=== PATIENT | male | born 1960 | race Caucasian/White ===

== ENCOUNTER 2024-07-18 11:30 | Inpatient (IN) | payer MEDICARE ==
--- NOTE | 2024-07-18 11:58 | ED ---
Nausea/Vomiting/Diarrhea HPI - General Chief complaint: Nausea/Vomiting/Diarrhea Stated complaint: Vomiting Time Seen by Provider: 07/18/24 11:36 Source: patient, RN notes reviewed Mode of arrival: ambulatory Limitations: no limitations - History of Present Illness Initial comments: This is a 63-year-old male who presents to the emergency department for nausea and vomiting. States that it has been ongoing for about a week at this point. He has not had any bowel movements as he has been unable to keep anything down. He has been sweating a lot but has not measured any fevers. He has generalized abdominal cramping as a result of all of the vomiting. 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 He is concerned that he may have acquired this, causing his symptoms. MD complaint: nausea, vomiting - Related Data Home Medications Medication Instructions Recorded Confirmed Vortioxetine Hydrobromide 10 mg PO DAILY 07/18/24 07/18/24 [Trintellix] hydroCHLOROthiazide [Hydrodiuril] 12.5 mg PO DAILY 07/18/24 07/18/24 traZODone HCL 150 mg PO HS 07/18/24 07/18/24 Allergies Allergy/AdvReac Type Severity Reaction Status Date / Time No Known Allergies Allergy Verified 07/18/24 13:08 Review of Systems ROS Statement: Those systems with pertinent positive or pertinent negative responses have been documented in the HPI. ROS Other: All systems not noted in ROS Statement are negative. Past Medical History Past Medical History: Hypertension Smoking Status: Never smoker Past Alcohol Use History: None Reported Past Drug Use History: None Reported General Exam Limitations: no limitations General appearance: alert, in distress Head exam: Present: atraumatic, normocephalic, normal inspection Respiratory exam: Present: other (Tachypnea) Cardiovascular Exam: Present: tachycardia, irregular rhythm GI/Abdominal exam: Present: soft, normal bowel sounds. Absent: distended, tenderness, guarding, rebound, rigid Neurological exam: Present: alert, oriented X3, CN II-XII intact Psychiatric exam: Present: normal affect, normal mood Skin exam: Present: warm, dry, intact, normal color. Absent: rash Course Vital Signs 07/18/24 07/18/24 07/18/24 11:32 12:27 12:41 Temperature 98 F Pulse Rate 63 133 H 135 H Respiratory 32 H 26 H 24 Rate Blood Pressure 137/99 158/120 172/106 O2 Sat by Pulse 97 98 100 Oximetry 07/18/24 07/18/24 07/18/24 14:19 14:32 15:36 Temperature Pulse Rate 99 96 101 H Respiratory 18 18 18 Rate Blood Pressure 153/108 152/122 150/85 O2 Sat by Pulse 97 96 98 Oximetry 07/18/24 07/18/24 16:49 17:55 Temperature Pulse Rate 102 H 88 Respiratory 18 18 Rate Blood Pressure 123/89 150/99 O2 Sat by Pulse 95 97 Oximetry Medical Decision Making - Medical Decision Making This is a 63-year-old male who presents to the emergency department for nausea and vomiting. Was pt. sent in by a medical professional or institution? @ -No Did you speak to anyone other than the patient for history? @ -No Did you review nursing and triage notes? @ -Yes, and I agree, it is accurate with regards to the patient's symptoms. Were old charts reviewed? @ -No Differential Diagnosis? @ -Differential Nausea and Vomiting: Gastroenteritis, cholecystitis, appendicitis, pancreatitis, migraine, benign positional vertigo, food borne illness, pyelonephritis, irritable bowel syndrome, influenza, Covid, GERD, incarcerated hernia, intestinal obstruction, this is not meant to be an all-inclusive list. EKG interpreted by me (3pts min.)? @ -EKG interpreted by me demonstrating the following: A-fib with RVR. Ventricular rate 153 bpm, QRS duration 109 ms, QTc 373 ms. X-rays interpreted by me (1pt min.)? @ -Chest x-ray obtained, my interpretation identifies no localized consolidations or infiltrates. CT interpreted by me (1pt min.)? @ -CT scan of the abdomen and pelvis obtained. My interpretation identifies no evidence of bowel wall thickening or free air. U/S interpreted by me (1pt. min.)? @ -Not obtained What testing was considered but not performed? (CT, X-rays, U/S, labs)? Why? @ -None What meds were considered but not given? Why? @ -None Did you discuss the management of the patient with other professionals? @ -Yes, Dr. Acuña, who accepts the patient for admission Did you reconcile home meds? @ -Yes Was smoking cessation discussed for >3mins.? @ -No Was critical care preformed (if so, how long)? @ -Yes, >35 minutes Were there social determinants of health that impacted care today? How? (Homelessness, low income, unemployed, alcoholism, drug addiction, transportation, low edu. Level, literacy, decrease access to med. care, assisted, rehab)? @ -No Was there de-escalation of care discussed even if they declined? (Discuss DNR or withdrawal of care, Hospice)? @ -No What co-morbidities impacted this encounter? (DM, HTN, Smoking, COPD, CAD, Cancer, CVA, Hep., AIDS, mental health diagnosis, sleep apnea, morbid obesity)? @ -HTN Was patient admitted / discharged? @ -Admitted. On arrival an EKG was performed demonstrating A-fib with RVR. Patient has no history of A-fib. This was thought to be related to volume depletion due to how long his symptoms have been going on. He ended up receiving 2 L bolus of IV fluids and lab work was obtained. He did start to have improvement in his heart rate and the A-fib was no longer persistent, he seemed to be going in and out of it. He did have some mild chest pain that resolved on its own. Lab work demonstrated multiple irregularities including a sodium of 125, potassium of 2.8, bicarb of less than 5, undetectable anion gap, lactic acid of 3.7, and acetone positive. Venous blood gas and returned with a pH of 7.6, which did not make as much sense from our perspective. Patient was thought to have a fairly severe metabolic acidosis, potentially a starvation ketosis. Dr. Evans discussed the case with Dr. Ayon, who also advised that the pH component does not appear to to fit. He advised an ABG and repeat lab work. Lab work was repeated. At that point he had already received 2 L of IV fluids. He did have improvement in values including a pH of 7.45, CO2 of 19, and bicarb of 13. Repeat CMP did have improvements as well, however he remained fairly acidotic. Troponin elevated at 0.055, likely related to demand ischemia. We did also obtain a chest x-ray and CT scan of the abdomen and pelvis, both of which were unremarkable. Patient appears to have some sort of metabolic acidosis/possible mixed metabolic derangement with the nausea and vomiting. Patient was admitted to medicine for further management. He was started on maintenance fluids at 130 mL an hour. 40 mEq of potassium chloride administered as well. Consult placed for nephrology regarding the metabolic derangement and cardiology was consulted for the new onset A-fib and elevated troponin. Serial troponins ordered. Case discussed with ED attending Dr. Evans. Undiagnosed new problem with uncertain prognosis? @ -None Drug Therapy requiring intensive monitoring for toxicity (Heparin, Nitro, Insulin, Cardizem)? @ -Heparin Were any procedures done? @ -None Diagnosis/symptom? @ -Nausea and vomiting, metabolic acidosis, mixed metabolic derangement, new onset A-fib, elevated troponin Acute, or Chronic, or Acute on Chronic? @ -Acute Uncomplicated (without systemic symptoms) or Complicated (systemic symptoms)? @ -Complicated Side effects of treatment? @ -None Exacerbation, Progression, or Severe Exacerbation] @ -Not applicable Poses a threat to life or bodily function? @ -Yes, can lead to cardiac arrest and - Lab Data Result diagrams: 07/18/24 12:15 07/18/24 13:39 Lab Results 07/18/24 07/18/24 07/18/24 Range/Units 12:15 12:15 12:15 WBC 13.9 H (3.8-10.6) k/uL RBC 5.69 (4.30-5.90) m/uL Hgb 16.8 (13.0-17.5) gm/dL Hct 48.2 (39.0-53.0) % MCV 84.8 (80.0-100.0) fL MCH 29.5 (25.0-35.0) pg MCHC 34.8 (31.0-37.0) g/dL RDW 14.4 (11.5-15.5) % Plt Count 600 H (150-450) k/uL MPV 6.3 Neutrophils % 76 % Lymphocytes % 16 % Monocytes % 5 % Eosinophils % 1 % Basophils % 0 % Neutrophils # 10.5 H (1.3-7.7) k/uL Lymphocytes # 2.3 (1.0-4.8) k/uL Monocytes # 0.7 (0-1.0) k/uL Eosinophils # 0.1 (0-0.7) k/uL Basophils # 0.1 (0-0.2) k/uL Sample Site ABG pH (7.35-7.45) ABG pCO2 (35-45) mmHg ABG pO2 (83-108) mmHg ABG HCO3 (21-25) mmol/L ABG Total CO2 (19-24) mmol/L ABG O2 Saturation (94-97) % ABG Base Excess mmol/L Manuel Test VBG pH (7.31-7.41) VBG pCO2 (37-51) mmHg VBG HCO3 (24-28) mmol/L Hemoglobin (13.0-17.5) gm/dL FiO2 % Sodium 125 L (137-145) mmol/L Potassium 2.8 L (3.5-5.1) mmol/L Chloride 89 L (98-107) mmol/L Carbon Dioxide <5 L* (22-30) mmol/L Anion Gap mmol/L BUN 26 H (9-20) mg/dL Creatinine 1.58 H (0.66-1.25) mg/dL Est GFR (CKD-EPI)AfAm 52 (>60 ml/min/1.73 sqM) Est GFR (CKD-EPI)NonAf 45 (>60 ml/min/1.73 sqM) Glucose 189 H (74-99) mg/dL Lactic Ac Sepsis Rflx Plasma Lactic Acid Bryce 3.7 H* (0.7-2.0) mmol/L Calcium 9.8 (8.4-10.2) mg/dL Phosphorus 3.9 (2.5-4.5) mg/dL Magnesium 1.8 (1.6-2.3) mg/dL Total Bilirubin 1.5 H (0.2-1.3) mg/dL AST 26 (17-59) U/L ALT 20 (4-49) U/L Alkaline Phosphatase 92 (38-126) U/L Troponin I (0.000-0.034) ng/mL Total Protein 7.8 (6.3-8.2) g/dL Albumin 4.6 (3.5-5.0) g/dL Amylase 67 (30-110) U/L Lipase 201 (23-300) U/L Acetone, Qual Positive (Negative) Influenza Type A (PCR) (Not Detectd) Influenza Type B (PCR) (Not Detectd) RSV (PCR) (Not Detectd) SARS-CoV-2 (PCR) (Not Detectd) 07/18/24 07/18/24 07/18/24 Range/Units 12:15 12:27 12:52 WBC (3.8-10.6) k/uL RBC (4.30-5.90) m/uL Hgb (13.0-17.5) gm/dL Hct (39.0-53.0) % MCV (80.0-100.0) fL MCH (25.0-35.0) pg MCHC (31.0-37.0) g/dL RDW (11.5-15.5) % Plt Count (150-450) k/uL MPV Neutrophils % % Lymphocytes % % Monocytes % % Eosinophils % % Basophils % % Neutrophils # (1.3-7.7) k/uL Lymphocytes # (1.0-4.8) k/uL Monocytes # (0-1.0) k/uL Eosinophils # (0-0.7) k/uL Basophils # (0-0.2) k/uL Sample Site ABG pH (7.35-7.45) ABG pCO2 (35-45) mmHg ABG pO2 (83-108) mmHg ABG HCO3 (21-25) mmol/L ABG Total CO2 (19-24) mmol/L ABG O2 Saturation (94-97) % ABG Base Excess mmol/L Manuel Test VBG pH 7.60 H* (7.31-7.41) VBG pCO2 <15 L* (37-51) mmHg VBG HCO3 (24-28) mmol/L Hemoglobin (13.0-17.5) gm/dL FiO2 % Sodium (137-145) mmol/L Potassium (3.5-5.1) mmol/L Chloride (98-107) mmol/L Carbon Dioxide (22-30) mmol/L Anion Gap mmol/L BUN (9-20) mg/dL Creatinine (0.66-1.25) mg/dL Est GFR (CKD-EPI)AfAm (>60 ml/min/1.73 sqM) Est GFR (CKD-EPI)NonAf (>60 ml/min/1.73 sqM) Glucose (74-99) mg/dL Lactic Ac Sepsis Rflx Y Plasma Lactic Acid Bryce (0.7-2.0) mmol/L Calcium (8.4-10.2) mg/dL Phosphorus (2.5-4.5) mg/dL Magnesium (1.6-2.3) mg/dL Total Bilirubin (0.2-1.3) mg/dL AST (17-59) U/L ALT (4-49) U/L Alkaline Phosphatase (38-126) U/L Troponin I (0.000-0.034) ng/mL Total Protein (6.3-8.2) g/dL Albumin (3.5-5.0) g/dL Amylase (30-110) U/L Lipase (23-300) U/L Acetone, Qual (Negative) Influenza Type A (PCR) Not Detected (Not Detectd) Influenza Type B (PCR) Not Detected (Not Detectd) RSV (PCR) Not Detected (Not Detectd) SARS-CoV-2 (PCR) Not Detected (Not Detectd) 07/18/24 07/18/24 07/18/24 Range/Units 12:58 13:39 13:50 WBC (3.8-10.6) k/uL RBC (4.30-5.90) m/uL Hgb (13.0-17.5) gm/dL Hct (39.0-53.0) % MCV (80.0-100.0) fL MCH (25.0-35.0) pg MCHC (31.0-37.0) g/dL RDW (11.5-15.5) % Plt Count (150-450) k/uL MPV Neutrophils % % Lymphocytes % % Monocytes % % Eosinophils % % Basophils % % Neutrophils # (1.3-7.7) k/uL Lymphocytes # (1.0-4.8) k/uL Monocytes # (0-1.0) k/uL Eosinophils # (0-0.7) k/uL Basophils # (0-0.2) k/uL Sample Site rbrach ABG pH 7.45 (7.35-7.45) ABG pCO2 19 L* (35-45) mmHg ABG pO2 92 (83-108) mmHg ABG HCO3 13 L (21-25) mmol/L ABG Total CO2 14 L (19-24) mmol/L ABG O2 Saturation 97.3 H (94-97) % ABG Base Excess -8.3 mmol/L Manuel Test Yes VBG pH (7.31-7.41) VBG pCO2 (37-51) mmHg VBG HCO3 (24-28) mmol/L Hemoglobin 14.2 (13.0-17.5) gm/dL FiO2 21 % Sodium 127 L (137-145) mmol/L Potassium 2.8 L (3.5-5.1) mmol/L Chloride 98 (98-107) mmol/L Carbon Dioxide 8 L* (22-30) mmol/L Anion Gap 21 mmol/L BUN 23 H (9-20) mg/dL Creatinine 1.20 (0.66-1.25) mg/dL Est GFR (CKD-EPI)AfAm 73 (>60 ml/min/1.73 sqM) Est GFR (CKD-EPI)NonAf 63 (>60 ml/min/1.73 sqM) Glucose 118 H (74-99) mg/dL Lactic Ac Sepsis Rflx Plasma Lactic Acid Bryce (0.7-2.0) mmol/L Calcium 8.4 (8.4-10.2) mg/dL Phosphorus (2.5-4.5) mg/dL Magnesium (1.6-2.3) mg/dL Total Bilirubin 1.4 H (0.2-1.3) mg/dL AST 24 (17-59) U/L ALT 16 (4-49) U/L Alkaline Phosphatase 70 (38-126) U/L Troponin I 0.055 H* (0.000-0.034) ng/mL Total Protein 6.7 (6.3-8.2) g/dL Albumin 3.9 (3.5-5.0) g/dL Amylase (30-110) U/L Lipase (23-300) U/L Acetone, Qual (Negative) Influenza Type A (PCR) (Not Detectd) Influenza Type B (PCR) (Not Detectd) RSV (PCR) (Not Detectd) SARS-CoV-2 (PCR) (Not Detectd) - Radiology Data Radiology results: report reviewed, image reviewed Critical Care Time Critical Care Time: Yes Critical Care Time: >35 minutes Disposition Clinical Impression: Nausea and vomiting, Mixed acid base balance disorder, Metabolic acidosis, New onset atrial fibrillation, Elevated troponin Disposition: ADMITTED IP TO THIS HOSP
[2024-07-18] MEDS: SODIUM CHLORIDE 0.9% 500 ML 500 ML IV STA ×2 (12:17→13:30)
[2024-07-18] MEDS: SODIUM CHLORIDE 0.9% 1,000 ML IV STA ×2 (12:18→13:30)
[2024-07-18] MEDS: ONDANSETRON 4 MG/2 ML VIAL IVP STA (12:19)
[2024-07-18 12:21] LABS: Basophils # (A) 0.1 k/uL (0-0.2); Basophils % (A) 0 %; Eosinophils # (A) 0.1 k/uL (0-0.7); Eosinophils % (A) 1 %; HCT 48.2 % (39.0-53.0); HGB 16.8 gm/dL (13.0-17.5); Lymphocytes # (A) 2.3 k/uL (1.0-4.8); Lymphocytes % (A) 16 %; MCH 29.5 pg (25.0-35.0); MCHC 34.8 g/dL (31.0-37.0); MCV 84.8 fL (80.0-100.0); Mean Platelet Volume 6.3; Monocytes # (A) 0.7 k/uL (0-1.0); Monocytes % (A) 5 %; Neutrophils # (A) 10.5 k/uL (1.3-7.7); Neutrophils % (A) 76 %; Platelet Count 600 k/uL (150-450); RBC 5.69 m/uL (4.30-5.90); RDW 14.4 % (11.5-15.5); WBC 13.9 k/uL (3.8-10.6)
[2024-07-18] MEDS: FAMOTIDINE 20 MG/2 ML VIAL IV STA (12:22)
[2024-07-18 12:35] LABS: ALT 20 U/L (4-49); AST 26 U/L (17-59); African American GFR (CKD) 52 (>60 ml/min/1.73 sqM); Albumin 4.6 g/dL (3.5-5.0); Alkaline Phosphatase 92 U/L (38-126); Amylase 67 U/L (30-110); Blood Urea Nitrogen 26 mg/dL (9-20); Calcium 9.8 mg/dL (8.4-10.2); Chloride 89 mmol/L (98-107); Glucose 189 mg/dL (74-99); Lipase 201 U/L (23-300); Magnesium 1.8 mg/dL (1.6-2.3); Non-African American GFR(CKD) 45 (>60 ml/min/1.73 sqM); Phosphorus 3.9 mg/dL (2.5-4.5); Potassium 2.8 mmol/L (3.5-5.1); Sodium 125 mmol/L (137-145); Total Bilirubin 1.5 mg/dL (0.2-1.3); Total Protein 7.8 g/dL (6.3-8.2)
[2024-07-18 12:52] LABS: Carbon Dioxide <5 mmol/L (22-30)
[2024-07-18 13:03] LABS: VBG PCO2 <15 mmHg (37-51)
--- NOTE | 2024-07-18 13:04 | XR ---
EXAMINATION TYPE: XR chest 1V portable DATE OF EXAM: 07/18/2024 COMPARISON: NONE CLINICAL INDICATION: Male, 63 years old with history of HALI; TECHNIQUE: Single frontal view of the chest is obtained. FINDINGS: There is no focal air space opacity, pleural effusion, or pneumothorax seen. The cardiac silhouette size is within normal limits. The osseous structures are intact. IMPRESSION: No acute process. [facility], , 07/18/2024 1:02 PM
--- NOTE | 2024-07-18 13:32 | CT ---
EXAMINATION TYPE: CT abdomen pelvis wo con DATE OF EXAM: 07/18/2024 COMPARISON: None CLINICAL INDICATION: Male, 63 years old with history of Abdominal pain, acute, nonlocalized; PHH, Abd ominal pain, acute, non localized TECHNIQUE: CT scan of the abdomen and pelvis is performed without oral or IV contrast. CT DLP: 488.[address] CTDI: mGy Automated exposure control for dose reduction was used. FINDINGS: Within the limitations of a non-contrast study, the following observations are made. The lungs are clear. There is a small hiatal hernia. Gallbladder is normal and there is no gallstone, wall thickening, pericholecystic fluid or distention . There is no biliary ductal dilatation. There is no organomegaly of the liver, pancreas, spleen or adrenal glands. There is a 3 to 4 mm nonobstructing renal calcification on the left. There is no hydronephrosis bilat erally. There are no right renal calcifications. The caliber of the abdominal aorta is normal and there is no retroperitoneal adenopathy or hemorrhage . The bowel loops are normal in caliber is no evidence of obstruction. No inflammatory changes are iden tified in the mesentery and there is no free intraperitoneal air or fluid. There is no pelvic mass, free fluid, abscess or adenopathy. There is mild to moderate diverticulosis of the colon without CT evidence of diverticulitis. The osseous structures and soft tissues are unremarkable. IMPRESSION: 1. No acute changes within the abdomen or pelvis. 2. 2 to 3 mm nonobstructing left renal calcification. 3. [id number] diverticulosis without CT evidence of acute diverticulitis. [facility], , 07/18/2024 1:29 PM
[2024-07-18 13:54] LABS: ABG Base Excess -8.3 mmol/L; ABG HCO3 13 mmol/L (21-25); ABG Oxygen Saturation 97.3 % (94-97); ABG PH 7.45 (7.35-7.45); ABG PO2 92 mmHg (83-108); ABG TCO2 14 mmol/L (19-24); Allen Test Performed? Yes
[2024-07-18 13:55] LABS: ABG PCO2 19 mmHg (35-45)
[2024-07-18 14:04] LABS: ALT 16 U/L (4-49); AST 24 U/L (17-59); African American GFR (CKD) 73 (>60 ml/min/1.73 sqM); Albumin 3.9 g/dL (3.5-5.0); Alkaline Phosphatase 70 U/L (38-126); Anion Gap 21 mmol/L; Blood Urea Nitrogen 23 mg/dL (9-20); Calcium 8.4 mg/dL (8.4-10.2); Chloride 98 mmol/L (98-107); Glucose 118 mg/dL (74-99); Non-African American GFR(CKD) 63 (>60 ml/min/1.73 sqM); Potassium 2.8 mmol/L (3.5-5.1); Sodium 127 mmol/L (137-145); Total Bilirubin 1.4 mg/dL (0.2-1.3); Total Protein 6.7 g/dL (6.3-8.2)
[2024-07-18 14:18] LABS: Carbon Dioxide 8 mmol/L (22-30)
[2024-07-18] MEDS: POTASSIUM CHLORIDE 10 MEQ in WATER FOR INJECTION 1 100ML.BAG IVPB SCH (14:31)
[2024-07-18] MEDS ORDERED: HYDROcodone/APAP 5-325MG 1 EACH TAB PO PRN (14:37)
[2024-07-18] MEDS ORDERED: ONDANSETRON 4 MG/2 ML VIAL IVP PRN (14:37)
[2024-07-18] MEDS ORDERED: ACETAMINOPHEN TAB 325 MG TAB PO PRN (14:37)
[2024-07-18] MEDS ORDERED: NALOXONE 0.4 MG/ML 1 ML VIAL IV PRN (14:37)
[2024-07-18] MEDS ORDERED: MORPHINE SULFATE 4 MG/ML SYRINGE IV PRN (14:37)
[2024-07-18] MEDS: HEPARIN SODIUM 1,000 UN/ML (10ML VL) IV ONE (20:15)
[2024-07-18] MEDS: HEPARIN SOD,PORK IN 0.45% NACL 25,000 UNIT in 0.45% NACL 1 250ML.BAG IV SCH (20:19)
[2024-07-18] MEDS: traZODone HCL 50 MG TAB PO SCH (20:55)
[2024-07-19 02:02] LABS: Appearance,Urine Clear (Clear); Bilirubin,Urine Negative (Negative); Blood,Urine Negative (Negative); Color,Urine Light Yellow; Glucose,Urine (UA) Negative (Negative); Ketones,Urine 3+ (Negative); Leukocyte Esterase,Urine Negative (Negative); Nitrite,Urine Negative (Negative); PH, Urine 5.5 (5.0-8.0); Protein,Urine Negative (Negative); Specific Gravity,Urine 1.017 (1.001-1.035); Urobilinogen,Urine <2.0 mg/dL (<2.0)
[2024-07-19 02:55] LABS: Basophils # (A) 0.1 k/uL (0-0.2); Basophils % (A) 1 %; Eosinophils # (A) 0.2 k/uL (0-0.7); Eosinophils % (A) 2 %; HCT 38.6 % (39.0-53.0); Lymphocytes # (A) 2.6 k/uL (1.0-4.8); Lymphocytes % (A) 21 %; MCH 29.5 pg (25.0-35.0); MCHC 34.2 g/dL (31.0-37.0); MCV 86.3 fL (80.0-100.0); Monocytes # (A) 0.9 k/uL (0-1.0); Monocytes % (A) 7 %; Neutrophils # (A) 8.2 k/uL (1.3-7.7); Neutrophils % (A) 67 %; Platelet Count 427 k/uL (150-450); RBC 4.48 m/uL (4.30-5.90); RDW 14.9 % (11.5-15.5); WBC 12.3 k/uL (3.8-10.6)
[2024-07-19 02:59] LABS: Prothrombin Time 11.1 sec (10.0-12.5)
[2024-07-19 03:02] LABS: HGB 13.2 gm/dL (13.0-17.5)
[2024-07-19] MEDS: HEPARIN SODIUM 1,000 UN/ML (10ML VL) IV PRN (04:39)
[2024-07-19] MEDS ORDERED: hydroCHLOROthiazide 12.5 MG CAP PO SCH (09:00)
[2024-07-19] MEDS: VORTIOXETINE HYDROBROMIDE 20 MG TABLET PO SCH (09:19)
[2024-07-19] MEDS: PANTOPRAZOLE 40 MG/10 ML VIAL IV SCH (09:19)
[2024-07-19] MEDS: SODIUM CHLORIDE 0.9% 1,000 ML IV SCH (10:51)
[2024-07-19] MEDS: METOPROLOL SUCCINATE (ER) 25 MG TAB.ER.24H PO SCH (11:11)
[2024-07-19 11:49] LABS: African American GFR (CKD) >90 (>60 ml/min/1.73 sqM); Alcohol <10 mg/dL; Anion Gap 13 mmol/L; Blood Urea Nitrogen 16 mg/dL (9-20); Calcium 8.7 mg/dL (8.4-10.2); Carbon Dioxide 19 mmol/L (22-30); Chloride 98 mmol/L (98-107); Glucose 121 mg/dL (74-99); Non-African American GFR(CKD) 84 (>60 ml/min/1.73 sqM); Potassium 3.1 mmol/L (3.5-5.1); Sodium 130 mmol/L (137-145)
--- NOTE | 2024-07-19 12:08 | P.NPCON ---
History of Present Illness - Reason for Consult metabolic acidosis - History of Present Illness patient is a 63-year-old male with history of hypertension who was admitted to the hospital with history of nausea and vomiting for 1 week prior to admission. Patient denied any diarrhea. No history of fever. Patient states that he was recently switched from lisinopril to hydrochlorothiazide. History of EtOH abuse and patient stated that he suddenly felt very sick after he had alcohol about a week ago and has not had any further intake. There may be concern for food poisoning with recent intake of [employer]affles. CO2 was 8 and serum creatinine 1.2 on admission. No significant hypotension. Status post IV fluid boluses. Patient states he is feeling better. He has been voiding. Past Medical History Past Medical History: Hypertension Smoking Status: Never smoker Past Alcohol Use History: None Reported Past Drug Use History: None Reported Medications and Allergies Home Medications Medication Instructions Recorded Confirmed Type Vortioxetine Hydrobromide 10 mg PO DAILY 07/18/24 07/18/24 History [Trintellix] hydroCHLOROthiazide [Hydrodiuril] 12.5 mg PO DAILY 07/18/24 07/18/24 History traZODone HCL 150 mg PO HS 07/18/24 07/18/24 History Allergies Allergy/AdvReac Type Severity Reaction Status Date / Time No Known Allergies Allergy Verified 07/18/24 13:08 Physical Exam Vitals: Vital Signs Temp Pulse Resp BP Pulse Ox 07/19/24 11:12 98.2 F 100 18 105/75 97 07/19/24 07:21 98.2 F 89 16 139/90 95 07/19/24 04:43 97.8 F 88 15 141/96 98 07/19/24 01:46 98.7 F 93 18 131/73 95 07/18/24 17:55 88 18 150/99 97 07/18/24 16:49 102 H 18 123/89 95 07/18/24 15:36 101 H 18 150/85 98 07/18/24 14:32 96 18 152/122 96 07/18/24 14:19 99 18 153/108 97 07/18/24 12:41 135 H 24 172/106 100 07/18/24 12:27 133 H 26 H 158/120 98 Intake and Output 12/08/24 12/09/24 12/09/24 22:59 06:59 14:59 Intake Total 83.833 200 Output Total 325 Balance -241.167 200 Intake: Intake, IV Titration 83.833 Amount Heparin Sod,Pork in 0.45% 83.833 NaCl 25,000 unit In 0.45 % NaCl 1 250ml.bag @ 12 UNITS/KG/HR 10.015 mls/hr IV .Q24H [facility] Rx#: [id number] Oral 200 Output: Urine 325 patient is comfortable awake alert oriented 3. No acute distress Examination of the heart S1 and S2 Examination of the lungs bilateral breath sounds are heard Abdomen is soft nontender Examination of lower extremities shows no significant edema [employer]OCK [employer] exam grossly intact Results - Lab Results Most recent lab results ABG pH 7.45 (7.35-7.45) 07/18/24 13:50 ABG pCO2 19 mmHg (35-45) L* 07/18/24 13:50 ABG pO2 92 mmHg (83-108) 07/18/24 13:50 ABG HCO3 13 mmol/L (21-25) L 07/18/24 13:50 ABG O2 Saturation 97.3 % (94-97) H 07/18/24 13:50 Calcium 8.7 mg/dL (8.4-10.2) 07/19/24 10:59 Phosphorus 3.9 mg/dL (2.5-4.5) 07/18/24 12:15 Magnesium 1.8 mg/dL (1.6-2.3) 07/18/24 12:15 07/19/24 02:23 07/19/24 10:59 Assessment and Plan Assessment: 1. Anion gap metabolic acidosis associated with starvation ketosis. 2. Volume depletion 3. Hypovolemic hyponatremia 4. Hypokalemia associated with GI fluid loss and vomiting. 5. Elevated troponins 6. Respiratory alkalosis as compensation for severe metabolic acidosis Plan: add IV sodium bicarb Repeat labs replace potassium. Encouraged increased oral intake Thank you for the consultation. We will continue to follow the patient with you during his hospitalization.
[2024-07-19 12:30] LABS: Amphetamine Screen,Urine Not Detected (NotDetected); Barbiturate Screen,Urine Not Detected (NotDetected); Benzodiazepines Screen,Urine Not Detected (NotDetected); Cocaine Screen,Urine Not Detected (NotDetected); Methadone Screen, Urine Not Detected (NotDetected); Opiate Screen,Urine Not Detected (NotDetected); Oxycodone Screen, Urine Not Detected (NotDetected); Phencyclidine Screen,Urine Not Detected (NotDetected); Tricyclic Antidepressant,Urine Not Detected (NotDetected); Urn Cannabinoid Scrn Detected (NotDetected)
[2024-07-19] MEDS: DEXTROSE 5% IN WATER 1,000 ML with SODIUM BICARB (1 MEQ/ML) 150 ML IV SCH (12:33)
--- NOTE | 2024-07-19 12:58 | P.HPIM ---
History of Present Illness H&P Date: 07/19/24 History of present illness; Patient is 63-year-old male with hypertension who presents for nausea and vomiting. Patient states symptoms began 1 week ago and have progressively worsened he states he vomits multiple times a day nonbloody and more recently have become bilious. He states symptoms began after eating [employer] waffles and believes there was a recent Listeria recall. Patient states he also had symptoms of diaphoresis, chills and abdominal cramping. He also notes some dull central chest pain associated with the vomiting, which improved somewhat with gentle massage. This morning patient states he is feeling his symptoms have improved with treatment in the ER of pantoprazole, Zofran and IV fluids. At this time he is denying fever, chills, chest pain, shortness of breath, palpitations, melena, hematuria. Initial lab workup in ER with WBC 13.9, hemoglobin 16.8, platelets 600, VBG pH 7.6, ABG 7.45, pCO2 19, O2 92, sodium 125, potassium 2.8, chloride 89, bicarb less than 5, BUN 26, creatinine 1.58, glucose 189, plasma lactic acid 3.7, total bili 1.5, troponin 0.055 => 0.077 => 0.100. Acetone positive. UA with 3+ ketones. EKG done in the ER A-fib with RVR heart rate of 153, no ST segment elevation or depression seen, no T-wave inversions seen. Later EKG with A-fib rate 92. Chest x-ray done independently interpreted in the ER showed no acute process CTAP interpreted as no acute change, 2 to 3 mm left renal stone nonobstructing, diverticulosis noted with no acute diverticulitis Spoke with the ER physician, patient admission was accepted by internal medicine service for treatment. REVIEW OF SYSTEMS: Pertinent positives and negatives noted in HPI. PHYSICAL EXAMINATION: Vitals reviewed GENERAL: No acute distress. Well developed, well nourished. HEENT: Pupils are round and equally reacting to light. EOMI. No scleral icterus. Normocephalic, atraumatic. No pharyngeal erythema. No thyromegaly. CARDIOVASCULAR: S1 and S2 present. No murmurs, rubs, or gallops. PULMONARY: Chest is clear to auscultation, no wheezing, rhonchi, or crackles. ABDOMEN: Soft, nontender, nondistended, normoactive bowel sounds. No palpable organomegaly. MUSCULOSKELETAL: No apparent joint swelling and deformities. EXTREMITIES: No apparent cyanosis, clubbing, or pedal edema. NEUROLOGICAL: The patient is alert and oriented x3, Gross neurological examination did not reveal any focal deficits. SKIN: No apparent rashes. Today's labs WBC 12.3, hemoglobin 13.2, sodium 130, potassium 3.1, bicarb 19, gap 13, BUN 16, creatinine 0.95 Assessment and plan Patient is 63-year-old male with hypertension who presents for nausea and vomiting. #Gastroenteritis with nausea and vomiting #Anion gap metabolic acidosis with starvation ketosis with compensatory respiratory alkalosis #Hypovolemic hyponatremia #Hypokalemia fromGI fluid loss Continue pantoprazole, famotidine and Zofran Given 2 L IV NS in ER Given IV sodium bicarb with D5 W Given potassium replacement Monitor BMP Nephrology consulted #Elevated troponin #New onset A-fib Initial troponin 0.055 => 0.077 => 0.[address] segment elevation or depression noted Continue heparin drip Begin metoprolol Echo pending Lipid panel, HbA1c, TSH pending Continuous cardiac monitoring Cardiology consulted Chronic Medical Conditions # Essential hypertension -Holding home hydrochlorothiazide F: IV D5W E: Replete as needed N: Clear liquid DVT ppx: Heparin drip Code status: Full code Anticipated discharge place: Home Anticipated discharge time: Tomorrow Dictation was produced using [employer] dictation software. Please excuse any grammatical, word or spelling errors. Past Medical History Past Medical History: Hypertension Smoking Status: Never smoker Past Alcohol Use History: None Reported Past Drug Use History: None Reported Medications and Allergies Home Medications Medication Instructions Recorded Confirmed Type Vortioxetine Hydrobromide 10 mg PO DAILY 07/18/24 07/18/24 History [Trintellix] hydroCHLOROthiazide [Hydrodiuril] 12.5 mg PO DAILY 07/18/24 07/18/24 History traZODone HCL 150 mg PO HS 07/18/24 07/18/24 History Allergies Allergy/AdvReac Type Severity Reaction Status Date / Time No Known Allergies Allergy Verified 07/18/24 13:08 Physical Exam Vitals: Vital Signs Temp Pulse Resp BP Pulse Ox 07/19/24 11:12 98.2 F 100 18 105/75 97 07/19/24 07:21 98.2 F 89 16 139/90 95 07/19/24 04:43 97.8 F 88 15 141/96 98 07/19/24 01:46 98.7 F 93 18 131/73 95 07/18/24 17:55 88 18 150/99 97 07/18/24 16:49 102 H 18 123/89 95 07/18/24 15:36 101 H 18 150/85 98 07/18/24 14:32 96 18 152/122 96 07/18/24 14:19 99 18 153/108 97 07/18/24 12:41 135 H 24 172/106 100 Intake and Output 07/18/24 07/19/24 07/19/24 22:59 06:59 14:59 Intake Total 83.833 200 Output Total 325 Balance -241.167 200 Intake: Intake, IV Titration 83.833 Amount Heparin Sod,Pork in 0.45% 83.833 NaCl 25,000 unit In 0.45 % NaCl 1 250ml.bag @ 12 UNITS/KG/HR 10.015 mls/hr IV .Q[facility]H [facility] Rx#: [id number] Oral 200 Output: Urine 325 Results CBC & Chem 7: 07/19/24 02:23 07/19/24 10:59 Labs: Abnormal Lab Results - Last 24 Hours (Table) 07/18/24 07/18/24 07/18/24 Range/Units 12:15 12:15 12:15 WBC (3.8-10.6) k/uL Hct (39.0-53.0) % Neutrophils # (1.3-7.7) k/uL APTT (22.0-30.0) sec ABG pCO2 (35-45) mmHg ABG HCO3 (21-25) mmol/L ABG Total CO2 (19-24) mmol/L ABG O2 Saturation (94-97) % VBG pH 7.60 H* (7.31-7.41) VBG pCO2 <15 L* (37-51) mmHg Sodium 125 L (137-145) mmol/L Potassium 2.8 L (3.5-5.1) mmol/L Chloride 89 L (98-107) mmol/L Carbon Dioxide <5 L* (22-30) mmol/L BUN 26 H (9-20) mg/dL Creatinine 1.58 H (0.66-1.25) mg/dL Glucose 189 H (74-99) mg/dL Plasma Lactic Acid Bryce 3.7 H* (0.7-2.0) mmol/L Total Bilirubin 1.5 H (0.2-1.3) mg/dL Troponin I (0.000-0.034) ng/mL Urine Ketones (Negative) 07/18/24 07/18/24 07/18/24 Range/Units 12:58 13:39 13:50 WBC (3.8-10.6) k/uL Hct (39.0-53.0) % Neutrophils # (1.3-7.7) k/uL APTT (22.0-30.0) sec ABG pCO2 19 L* (35-45) mmHg ABG HCO3 13 L (21-25) mmol/L ABG Total CO2 14 L (19-24) mmol/L ABG O2 Saturation 97.3 H (94-97) % VBG pH (7.31-7.41) VBG pCO2 (37-51) mmHg Sodium 127 L (137-145) mmol/L Potassium 2.8 L (3.5-5.1) mmol/L Chloride (98-107) mmol/L Carbon Dioxide 8 L* (22-30) mmol/L BUN 23 H (9-20) mg/dL Creatinine (0.66-1.25) mg/dL Glucose 118 H (74-99) mg/dL Plasma Lactic Acid Bryce (0.7-2.0) mmol/L Total Bilirubin 1.4 H (0.2-1.3) mg/dL Troponin I 0.055 H* (0.000-0.034) ng/mL Urine Ketones (Negative) 07/18/24 07/18/24 07/19/24 Range/Units 15:10 17:39 01:51 WBC (3.8-10.6) k/uL Hct (39.0-53.0) % Neutrophils # (1.3-7.7) k/uL APTT (22.0-30.0) sec ABG pCO2 (35-45) mmHg ABG HCO3 (21-25) mmol/L ABG Total CO2 (19-24) mmol/L ABG O2 Saturation (94-97) % VBG pH (7.31-7.41) VBG pCO2 (37-51) mmHg Sodium (137-145) mmol/L Potassium (3.5-5.1) mmol/L Chloride (98-107) mmol/L Carbon Dioxide (22-30) mmol/L BUN (9-20) mg/dL Creatinine (0.66-1.25) mg/dL Glucose (74-99) mg/dL Plasma Lactic Acid Bryce (0.7-2.0) mmol/L Total Bilirubin (0.2-1.3) mg/dL Troponin I 0.077 H* 0.100 H* (0.000-0.034) ng/mL Urine Ketones 3+ H (Negative) 07/19/24 07/19/24 07/19/24 Range/Units 02:23 02:23 10:59 WBC 12.3 H (3.8-10.6) k/uL Hct 38.6 L (39.0-53.0) % Neutrophils # 8.2 H (1.3-7.7) k/uL APTT 31.6 H 49.1 H (22.0-30.0) sec ABG pCO2 (35-45) mmHg ABG HCO3 (21-25) mmol/L ABG Total CO2 (19-24) mmol/L ABG O2 Saturation (94-97) % VBG pH (7.31-7.41) VBG pCO2 (37-51) mmHg Sodium (137-145) mmol/L Potassium (3.5-5.1) mmol/L Chloride (98-107) mmol/L Carbon Dioxide (22-30) mmol/L BUN (9-20) mg/dL Creatinine (0.66-1.25) mg/dL Glucose (74-99) mg/dL Plasma Lactic Acid Bryce (0.7-2.0) mmol/L Total Bilirubin (0.2-1.3) mg/dL Troponin I (0.000-0.034) ng/mL Urine Ketones (Negative) 07/19/24 Range/Units 10:59 WBC (3.8-10.6) k/uL Hct (39.0-53.0) % Neutrophils # (1.3-7.7) k/uL APTT (22.0-30.0) sec ABG pCO2 (35-45) mmHg ABG HCO3 (21-25) mmol/L ABG Total CO2 (19-24) mmol/L ABG O2 Saturation (94-97) % VBG pH (7.31-7.41) VBG pCO2 (37-51) mmHg Sodium 130 L (137-145) mmol/L Potassium 3.1 L (3.5-5.1) mmol/L Chloride (98-107) mmol/L Carbon Dioxide 19 L (22-30) mmol/L BUN (9-20) mg/dL Creatinine (0.66-1.25) mg/dL Glucose 121 H (74-99) mg/dL Plasma Lactic Acid Bryce (0.7-2.0) mmol/L Total Bilirubin (0.2-1.3) mg/dL Troponin I (0.000-0.034) ng/mL Urine Ketones (Negative)
[2024-07-19] MEDS: POTASSIUM CHLORIDE ER 20 MEQ TAB.ER PO SCH (13:11)
--- NOTE | 2024-07-19 15:13 | P.CRDCN ---
History of Present Illness History of present illness: This is Dr. Marley dictating a consult on this patient The patient was interviewed and examined IMPRESSION / ASSESSMENT: 1 week of nausea vomiting inability to keep anything down and symptoms consistent with gastroenteritis. Generalized abdominal discomfort First twelve-lead EKG actually shows atrial fibrillation with RVR. While the second EKG shows sinus rhythm with frequent PACs. History of hypertension initially on lisinopril now on hydrochlorothiazide for an unclear reason. He did not have any side effects from lisinopril and his blood pressure was controlled Regular marijuana use, history of alcohol abuse History of nephrolithiasis Abnormal troponins, hyponatremia, hypokalemia acidosis Likely troponin elevation secondary to demand ischemia related to dehydration acidosis and A-fib with RVR Normalization of creatinine PLAN: 2D echo and Doppler study to assess cardiac structure and function Continue IV heparin, continue metoprolol succinate 25 mg p.o. daily 2D echo and Doppler study to assess cardiac structure and function Stop marijuana use Abstinence from alcohol use HPI Patient presented with nausea vomiting and retching for the last 1 week. He has not been able to keep anything down, he has been sweating a lot without any fevers. Generalized abdominal cramping. He also reported exertional chest discomfort Twelve-lead EKG in the EMR shows sinus mechanism with frequent PACs, irregular rate however the first EKG in the ER showed A-fib with RVR He has a history of hypertension previously on lisinopril 20 mg p.o. daily but for some reason switch to hydrochlorothiazide by his new PCP in the [facility] area He is a never smoker. Pulse rate 133 beats a minute upon admission blood pressure 158 systolic Troponins were sent and were abnormal Cardiology was consulted for atrial fibrillation and abnormal troponins ROS: No fever chills or rigors, no cough, phlegm or expectoration, + nausea, vomiting or diarrhea, no hematuria, dysuria, no musculoskeletal complaints, no strokes or seizures, no skin lesions. EXAMINATION: Blood pressure 105/75 mmHg afebrile pulse rate 100 beats a minute 97% on room air Breath sounds are reduced bilaterally Heart sounds S1-S2 soft no murmurs No lower extremity edema REVIEW OF LABS, ECG & MEDICAL DATA Mildly elevated white count of 12,000, hemoglobin 13.2 Platelet count 427,000 Sodium 130, potassium 3.1 BUN/creatinine normal Troponin 0.05, 0.07 and 0.1. Patient denies any chest discomfort at rest TSH 0.8 Positive for marijuana Past Medical History Past Medical History: Hypertension Smoking Status: Never smoker Past Alcohol Use History: None Reported Past Drug Use History: None Reported Medications and Allergies Home Medications Medication Instructions Recorded Confirmed Type Vortioxetine Hydrobromide 10 mg PO DAILY 07/18/24 07/18/24 History [Trintellix] hydroCHLOROthiazide [Hydrodiuril] 12.5 mg PO DAILY 07/18/24 07/18/24 History traZODone HCL 150 mg PO HS 07/18/24 07/18/24 History Allergies Allergy/AdvReac Type Severity Reaction Status Date / Time No Known Allergies Allergy Verified 07/18/24 13:08 Physical Exam Vitals: Vital Signs Temp Pulse Resp BP Pulse Ox 07/19/24 15:02 98.4 F 95 18 120/99 94 L 07/19/24 11:12 98.2 F 100 18 105/75 97 07/19/24 07:21 98.2 F 89 16 139/90 95 07/19/24 04:43 97.8 F 88 15 141/96 98 07/19/24 01:46 98.7 F 93 18 131/73 95 07/18/24 17:55 88 18 150/99 97 07/18/24 16:49 102 H 18 123/89 95 07/18/24 15:36 101 H 18 150/85 98 Intake and Output 07/19/24 07/19/24 07/19/24 06:59 14:59 22:59 Intake Total 83.833 200 Output Total 325 Balance -241.167 200 Intake: Intake, IV Titration 83.833 Amount Heparin Sod,Pork in 0.45% 83.833 NaCl 25,000 unit In 0.45 % NaCl 1 250ml.bag @ 12 UNITS/KG/HR 10.015 mls/hr IV .Q24H [facility] Rx#: [id number] Oral 200 Output: Urine 325 Results 07/19/24 02:23 07/19/24 10:59 Cardiac Enzymes 07/18/24 07/18/24 Range/Units 15:10 17:39 Troponin I 0.077 H* 0.100 H* (0.000-0.034) ng/mL Coagulation 07/19/24 07/19/24 07/19/24 Range/Units 02:23 02:23 10:59 PT 11.1 (10.0-12.5) sec APTT 31.6 H 49.1 H (22.0-30.0) sec CBC 07/19/24 Range/Units 02:23 WBC 12.3 H (3.8-10.6) k/uL RBC 4.48 (4.30-5.90) m/uL Hgb 13.2 D (13.0-17.5) gm/dL Hct 38.6 L (39.0-53.0) % Plt Count 427 (150-450) k/uL Comprehensive Metabolic Panel 07/19/24 Range/Units 10:59 Sodium 130 L (137-145) mmol/L Potassium 3.1 L (3.5-5.1) mmol/L Chloride 98 (98-107) mmol/L Carbon Dioxide 19 L (22-30) mmol/L BUN 16 (9-20) mg/dL Creatinine 0.95 (0.66-1.25) mg/dL Glucose 121 H (74-99) mg/dL Calcium 8.7 (8.4-10.2) mg/dL Current Medications Generic Name Dose Route Start Last Admin Trade Name Freq PRN Reason Stop Dose Admin Acetaminophen 650 mg 07/18/24 14:37 Acetaminophen Tab 325 Mg Tab PO Q6HR PRN Mild Pain or Fever > 100.5 Heparin Sodium (Porcine) 0 unit 07/18/24 18:55 07/19/24 04:39 Heparin Sodium 1,000 Un/Ml (10ml Vl) IV 4,000 unit PER PROTOCOL PRN Administration Low PTT Protocol Heparin Sodium/Sodium Chloride 250 mls @ 10.015 mls/hr 07/18/24 19:00 07/19/24 04:42 25,000 unit/ Sodium Chloride IV 14.98 units/kg/hr .Q24H [facility] 12.502 mls/hr Titration Protocol 12 UNITS/KG/HR Sodium Bicarbonate 150 ml/ 1,150 mls @ 100 mls/hr 07/19/24 10:30 07/19/24 12:33 Dextrose/Water IV 100 mls/hr .[id number] [facility] Administration Metoprolol Succinate 25 mg 07/19/24 11:00 07/19/24 11:11 Metoprolol Succinate (Er) 25 Mg Tab.Er.24h PO 25 mg DAILY [facility] Administration Naloxone HCl 0.2 mg 07/18/24 14:37 Naloxone 0.4 Mg/Ml 1 Ml Vial IV Q2M PRN Opioid Reversal Ondansetron HCl 4 mg 07/18/24 14:37 Ondansetron 4 Mg/2 Ml Vial IVP Q8HR PRN Nausea And Vomiting Pantoprazole Sodium 40 mg 07/19/24 09:00 07/19/24 09:19 Pantoprazole 40 Mg/10 Ml Vial IV 40 mg DAILY [facility] Administration Potassium Chloride 40 meq 07/19/24 14:00 07/19/24 15:11 Potassium Chloride Er 20 Meq Tab.Er PO 07/19/24 16:01 40 meq Q2HR [facility] Administration Trazodone HCl 150 mg 07/18/24 21:00 07/18/24 20:55 Trazodone Hcl 50 Mg Tab PO 150 mg HS [facility] Administration Vortioxetine 10 mg 07/19/24 09:00 07/19/24 09:19 Vortioxetine Hydrobromide 20 Mg Tablet PO 10 mg DAILY [facility] Administration Intake and Output 07/19/24 07/19/24 07/19/24 06:59 14:59 22:59 Intake Total 83.833 200 Output Total 325 Balance -241.167 200 Intake: Intake, IV Titration 83.833 Amount Heparin Sod,Pork in 0.45% 83.833 NaCl 25,000 unit In 0.45 % NaCl 1 250ml.bag @ 12 UNITS/KG/HR 10.015 mls/hr IV .Q24H [facility] Rx#: [id number] Oral 200 Output: Urine 325 07/19/24 02:23 07/19/24 10:59
[2024-07-19 19:37] LABS: Chol/HDL Ratio 7.29 Ratio; LDL Cholesterol,Calculated 184.6 mg/dL (0.0-131.0)
[2024-07-20 06:53] LABS: Basophils % (A) 0 %; Eosinophils # (A) 0.2 k/uL (0-0.7); Eosinophils % (A) 3 %; HCT 37.3 % (39.0-53.0); HGB 12.3 gm/dL (13.0-17.5); Lymphocytes # (A) 1.2 k/uL (1.0-4.8); Lymphocytes % (A) 17 %; MCH 28.7 pg (25.0-35.0); MCV 87.1 fL (80.0-100.0); Mean Platelet Volume 6.6; Monocytes # (A) 0.6 k/uL (0-1.0); Monocytes % (A) 8 %; Neutrophils # (A) 5.1 k/uL (1.3-7.7); Neutrophils % (A) 70 %; Platelet Count 353 k/uL (150-450); RBC 4.28 m/uL (4.30-5.90); RDW 14.5 % (11.5-15.5); WBC 7.2 k/uL (3.8-10.6)
[2024-07-20] MEDS: APIXABAN 5 MG TAB PO SCH (08:59)
[2024-07-20 10:54] LABS: African American GFR (CKD) >90 (>60 ml/min/1.73 sqM); Anion Gap 1 mmol/L; Blood Urea Nitrogen 7 mg/dL (9-20); Calcium 8.4 mg/dL (8.4-10.2); Carbon Dioxide 36 mmol/L (22-30); Chloride 94 mmol/L (98-107); Glucose 122 mg/dL (74-99); Non-African American GFR(CKD) 85 (>60 ml/min/1.73 sqM); Potassium 3.1 mmol/L (3.5-5.1); Sodium 131 mmol/L (137-145)
[2024-07-20] MEDS: POTASSIUM CHLORIDE ER 20 MEQ TAB.ER PO STA ×2 (11:08→15:06)
--- NOTE | 2024-07-20 11:28 | P.PN ---
Subjective HISTORY OF PRESENT ILLNESS: Patient examined this morning at the bedside. Patient currently denies chest pain or pressure. He denies shortness of breath. He states his abdominal pain has improved. Denies nausea, vomiting, or diarrhea. Telemetry reveals sinus mechanism with PACs. He remains on IV heparin. PHYSICAL EXAM: VITAL SIGNS: Reviewed. GENERAL: Well-developed in no acute distress. NECK: Supple. No JVD or thyromegaly LUNGS: Respirations even and unlabored. Lungs essentially clear to auscultation bilaterally. HEART: Regular rate and rhythm. S1 and S2 heard. EXTREMITIES: Normal range of motion. No clubbing or cyanosis. Peripheral pulses intact. No lower extremity edema ASSESSMENT: Gastroenteritis New onset A-fib with RVR, currently maintaining sinus mechanism with PACs Hypertension Elevated troponins, type II CO secondary to oxygen supply/demand mismatch Acute kidney injury secondary to volume depletion Hyperlipidemia, LDL 184 History of alcohol abuse Occasional marijuana use PLAN: 2D echo ordered. Await results. Discontinue IV heparin Begin Eliquis 5 mg twice a day Continue current dose of metoprolol succinate 25 mg daily Add atorvastatin 40 mg at night Abstinence from alcohol and marijuana encouraged Continue telemetry monitoring Further recommendations pending patient course Nurse practitioner note has been reviewed by physician. Signing provider agrees with the documented findings, assessment, and plan of care documented by [employer] as a scribe. Objective - Vital Signs Vital signs: Vital Signs Temp 98.7 F 07/20/24 11:05 Pulse 76 07/20/24 10:52 Resp 17 07/20/24 10:52 BP 122/76 07/20/24 10:52 Pulse Ox 96 07/20/24 10:52 FiO2 Intake & Output 07/19/24 07/20/24 07/20/24 18:59 06:59 18:59 Intake Total 376.167 260 194.821 Balance 376.167 260 194.821 Weight 83.461 kg 83.4 kg Intake: IV 10 20 10 Invasive Line 1 10 20 10 Intake, IV Titration 166.167 184.821 Amount Heparin Sod,Pork in 0.45% 166.167 184.821 NaCl 25,000 unit In 0.45 % NaCl 1 250ml.bag @ 12 UNITS/KG/HR 10.015 mls/hr IV .Q24H [facility] Rx#: [id number] Oral 200 240 Other: Voiding Method Toilet Toilet Toilet # Voids 1 - Labs CBC & Chem 7: 07/20/24 06:18 07/20/24 10:21 Labs: Abnormal Lab Results - Last 24 Hours (Table) 07/19/24 07/19/24 07/19/24 Range/Units 01:30 10:59 10:59 RBC (4.30-5.90) m/uL Hgb (13.0-17.5) gm/dL Hct (39.0-53.0) % APTT 49.1 H (22.0-30.0) sec Sodium 130 L (137-145) mmol/L Potassium 3.1 L (3.5-5.1) mmol/L Chloride (98-107) mmol/L Carbon Dioxide 19 L (22-30) mmol/L BUN (9-20) mg/dL Glucose 121 H (74-99) mg/dL Hemoglobin A1c (<=6.0) % Cholesterol 245.00 H (0.00-200.00) mg/dL LDL Cholesterol, Calc 184.6 H (0.0-131.0) mg/dL HDL Cholesterol 33.60 L (40.00-60.00) mg/dL U Marijuana (THC) Screen Detected H (NotDetected) 07/19/24 07/20/24 07/20/24 Range/Units 10:59 06:18 06:18 RBC 4.28 L (4.30-5.90) m/uL Hgb 12.3 L (13.0-17.5) gm/dL Hct 37.3 L (39.0-53.0) % APTT 40.5 H (22.0-30.0) sec Sodium (137-145) mmol/L Potassium (3.5-5.1) mmol/L Chloride (98-107) mmol/L Carbon Dioxide (22-30) mmol/L BUN (9-20) mg/dL Glucose (74-99) mg/dL Hemoglobin A1c 6.1 H (<=6.0) % Cholesterol (0.00-200.00) mg/dL LDL Cholesterol, Calc (0.0-131.0) mg/dL HDL Cholesterol (40.00-60.00) mg/dL U Marijuana (THC) Screen (NotDetected) 07/20/24 Range/Units 10:21 RBC (4.30-5.90) m/uL Hgb (13.0-17.5) gm/dL Hct (39.0-53.0) % APTT (22.0-30.0) sec Sodium 131 L (137-145) mmol/L Potassium 3.1 L (3.5-5.1) mmol/L Chloride 94 L (98-107) mmol/L Carbon Dioxide 36 H (22-30) mmol/L BUN 7 L (9-20) mg/dL Glucose 122 H (74-99) mg/dL Hemoglobin A1c (<=6.0) % Cholesterol (0.00-200.00) mg/dL LDL Cholesterol, Calc (0.0-131.0) mg/dL HDL Cholesterol (40.00-60.00) mg/dL U Marijuana (THC) Screen (NotDetected)
--- NOTE | 2024-07-20 11:54 | XR ---
EXAMINATION TYPE: XR chest 1V DATE OF EXAM: 07/20/2024 11:48 AM COMPARISON: Chest radiographs from 07/18/2024 TECHNIQUE: XR chest 1V Frontal view of the chest. CLINICAL INDICATION:Male, 63 years old with history of fever; FINDINGS: Lungs/Pleura: There is no evidence of pleural effusion, focal consolidation, or pneumothorax. Pulmonary vascularity: Unremarkable. Heart/mediastinum: Cardiomediastinal silhouette is unremarkable. Musculoskeletal: No acute osseous pathology. IMPRESSION: No acute cardiopulmonary disease/process. [facility], , 07/20/2024 11:52 AM
--- NOTE | 2024-07-20 12:09 | P.PN ---
Subjective patient is seen for follow-up for hyponatremia and metabolic acidosis. Serum sodium increased to 131 today. Overall feeling much better. Tolerating oral intake. Objective - Vital Signs Vital signs: Vital Signs Temp 98.7 F 07/20/24 11:05 Pulse 76 07/20/24 10:52 Resp 17 07/20/24 10:52 BP 122/76 07/20/24 10:52 Pulse Ox 96 07/20/24 10:52 FiO2 Intake & Output 07/19/24 07/20/24 07/20/24 18:59 06:59 18:59 Intake Total 376.167 260 194.821 Balance 376.167 260 194.821 Weight 83.461 kg 83.4 kg Intake: IV 10 20 10 Invasive Line 1 10 20 10 Intake, IV Titration 166.167 184.821 Amount Heparin Sod,Pork in 0.45% 166.167 184.821 NaCl 25,000 unit In 0.45 % NaCl 1 250ml.bag @ 12 UNITS/KG/HR 10.015 mls/hr IV .Q24H [facility] Rx#: [id number] Oral 200 240 Other: Voiding Method Toilet Toilet Toilet # Voids 1 - Exam patient is comfortable awake alert oriented 3. 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 exam grossly intact - Labs CBC & Chem 7: 07/20/24 06:18 07/20/24 10:21 Labs: Abnormal Lab Results - Last 24 Hours (Table) 07/19/24 07/19/24 07/19/24 Range/Units 01:30 10:59 10:59 RBC (4.30-5.90) m/uL Hgb (13.0-17.5) gm/dL Hct (39.0-53.0) % APTT 49.1 H (22.0-30.0) sec Sodium (137-145) mmol/L Potassium (3.5-5.1) mmol/L Chloride (98-107) mmol/L Carbon Dioxide (22-30) mmol/L BUN (9-20) mg/dL Glucose (74-99) mg/dL Hemoglobin A1c (<=6.0) % Cholesterol 245.00 H (0.00-200.00) mg/dL LDL Cholesterol, Calc 184.6 H (0.0-131.0) mg/dL HDL Cholesterol 33.60 L (40.00-60.00) mg/dL U Marijuana (THC) Screen Detected H (NotDetected) 07/19/24 07/20/24 07/20/24 Range/Units 10:59 06:18 06:18 RBC 4.28 L (4.30-5.90) m/uL Hgb 12.3 L (13.0-17.5) gm/dL Hct 37.3 L (39.0-53.0) % APTT 40.5 H (22.0-30.0) sec Sodium (137-145) mmol/L Potassium (3.5-5.1) mmol/L Chloride (98-107) mmol/L Carbon Dioxide (22-30) mmol/L BUN (9-20) mg/dL Glucose (74-99) mg/dL Hemoglobin A1c 6.1 H (<=6.0) % Cholesterol (0.00-200.00) mg/dL LDL Cholesterol, Calc (0.0-131.0) mg/dL HDL Cholesterol (40.00-60.00) mg/dL U Marijuana (THC) Screen (NotDetected) 07/20/24 Range/Units 10:21 RBC (4.30-5.90) m/uL Hgb (13.0-17.5) gm/dL Hct (39.0-53.0) % APTT (22.0-30.0) sec Sodium 131 L (137-145) mmol/L Potassium 3.1 L (3.5-5.1) mmol/L Chloride 94 L (98-107) mmol/L Carbon Dioxide 36 H (22-30) mmol/L BUN 7 L (9-20) mg/dL Glucose 122 H (74-99) mg/dL Hemoglobin A1c (<=6.0) % Cholesterol (0.00-200.00) mg/dL LDL Cholesterol, Calc (0.0-131.0) mg/dL HDL Cholesterol (40.00-60.00) mg/dL U Marijuana (THC) Screen (NotDetected) Assessment and Plan Assessment: 1. Anion gap metabolic acidosis associated with starvation ketosis. 2. Volume depletion 3. Hypovolemic hyponatremia 4. Hypokalemia associated with GI fluid loss and vomiting. 5. Elevated troponins 6. Respiratory alkalosis as compensation for severe metabolic acidosis Plan: DC IV bicarb Switch to Ringer lactate Repeat labs in a.m. Repeat another 40 mEq of potassium chloride Encouraged increased oral intake
--- NOTE | 2024-07-20 12:51 | P.DS ---
Providers Date of admission: 07/18/24 14:31 Expected date of discharge: 07/20/24 Attending physician: Airam Lu Consults: 07/18/24 14:37 Consult Physician Urgent Consulting Provider: Mack Singh Consult Reason/Comments: New onset a-fib, elevated troponin Do you want consulting provider notified?: Yes Consult Physician Urgent Consulting Provider: Jp Day Consult Reason/Comments: Metabolic acidosis, mixed metabolic disorder Do you want consulting provider notified?: Yes Primary care physician: Pee Oviedo MD Hospital Course: Discharge diagnoses; #Gastroenteritis with nausea and vomiting #Anion gap metabolic acidosis with starvation ketosis with compensatory respiratory alkalosis #Hypovolemic hyponatremia #Hypokalemia fromGI fluid loss #Elevated troponin #New onset A-fib # Essential hypertension Hospital course; History of present illness; Patient is 63-year-old male with hypertension who presents for nausea and vomiting. Patient states symptoms began 1 week ago and have progressively worsened he states he vomits multiple times a day nonbloody and more recently have become bilious. He states symptoms began after eating [place] waffles and believes there was a recent [employer] recall. Patient states he also had symptoms of diaphoresis, chills and abdominal cramping. He also notes some dull central chest pain associated with the vomiting, which improved somewhat with gentle massage. This morning patient states he is feeling his symptoms have improved with treatment in the ER of pantoprazole, Zofran and IV fluids. At this time he is denying fever, chills, chest pain, shortness of breath, palpitations, melena, hematuria. Initial lab workup in ER with WBC 13.9, hemoglobin 16.8, platelets 600, VBG pH 7.6, ABG 7.45, pCO2 19, O2 92, sodium 125, potassium 2.8, chloride 89, bicarb less than 5, BUN 26, creatinine 1.58, glucose 189, plasma lactic acid 3.7, total bili 1.5, troponin 0.055 => 0.077 => 0.100. Acetone positive. UA with 3+ ketones. EKG done in the ER A-fib with RVR heart rate of 153, no ST segment elevation or depression seen, no T-wave inversions seen. Later EKG with A-fib rate 92. Chest x-ray done independently interpreted in the ER showed no acute proces CTAP interpreted as no acute change, 2 to 3 mm left renal stone nonobstructing, diverticulosis noted with no acute diverticulitis During hospital stay patient was treated for gastroenteritis with nausea and vomiting, anion gap metabolic acidosis from starvation ketosis hypovolemic hyponatremia and hypokalemia from GI loss. He also had elevated troponin and new onset A-fib. During stay he improved with pantoprazole, famotidine, Zofran he was given fluids, bicarb and D5W and potassium replacement. He was monitored by nephrology. Also he was seen by cardiology and started on Eliquis, Lipitor, metoprolol for new onset A-fib with RVR. Temperature noted before discharge to be 100.2. Repeat 98.7. Chest x-ray with no new infiltrates and no complaints of dysuria. Patient is discharged to home in stable condition. He began Eliquis, Lipitor, metoprolol and was also given 2-week course of pantoprazole. He is to follow-up with his PCP and cardiology. PHYSICAL EXAMINATION: Vitals reviewed GENERAL: No acute distress. Well developed, well nourished. HEENT: Pupils are round and equally reacting to light. EOMI. No scleral icterus. Normocephalic, atraumatic. No pharyngeal erythema. No thyromegaly. CARDIOVASCULAR: S1 and S2 present. No murmurs, rubs, or gallops. PULMONARY: Chest is clear to auscultation, no wheezing, rhonchi, or crackles. ABDOMEN: Soft, nontender, nondistended, normoactive bowel sounds. No palpable organomegaly. MUSCULOSKELETAL: No apparent joint swelling and deformities. EXTREMITIES: No apparent cyanosis, clubbing, or pedal edema. NEUROLOGICAL: The patient is alert and oriented x3, Gross neurological examination did not reveal any focal deficits. SKIN: No apparent rashes. Dictation was produced using [employer] dictation software. please excuse any grammatical, word or spelling errors. Patient Condition at Discharge: Stable Plan - Discharge Summary Discharge Rx Participant: No New Discharge Prescriptions: New Apixaban [Eliquis] 5 mg PO BID #14 tab Atorvastatin [Lipitor] 40 mg PO HS #14 tab Pantoprazole [Protonix] 40 mg PO DAILY #14 tab Metoprolol Succinate (ER) [Toprol XL] 25 mg PO DAILY #14 tab Continue hydroCHLOROthiazide [Hydrodiuril] 12.5 mg PO DAILY Vortioxetine Hydrobromide [Trintellix] 10 mg PO DAILY traZODone HCL 150 mg PO HS Discharge Medication List Vortioxetine Hydrobromide [Trintellix] 10 mg PO DAILY 07/18/24 [History] hydroCHLOROthiazide [Hydrodiuril] 12.5 mg PO DAILY 07/18/24 [History] traZODone HCL 150 mg PO HS 07/18/24 [History] Apixaban [Eliquis] 5 mg PO BID #14 tab 07/20/24 [Rx] Atorvastatin [Lipitor] 40 mg PO HS #14 tab 07/20/24 [Rx] Metoprolol Succinate (ER) [Toprol XL] 25 mg PO DAILY #14 tab 07/20/24 [Rx] Pantoprazole [Protonix] 40 mg PO DAILY #14 tab 07/20/24 [Rx] Follow up Appointment(s)/Referral(s): Pa Marley MD [STAFF PHYSICIAN] - 1 Week Patient Instructions/Handouts: A-fib (Atrial Fibrillation) (DC) Activity/Diet/Wound Care/Special Instructions: SCHEDULE WITH YOUR PRIMARY CARE DOCTOR FOR A POST HOSPITAL FOLLOW UP. Discharge Disposition: HOME SELF-CARE
[2024-07-20] MEDS: LACTATED RINGERS 1,000 ML IV SCH (15:05)
[2024-07-20 15:08] VITALS: BP 122/76; PULSE 76; RESP 17; TEMP 98.7
[2024-07-20] MEDS ORDERED: ATORVASTATIN 40 MG TAB PO SCH (21:00)
--- NOTE | 2024-07-21 07:45 | CA ---
Transthoracic Echo Report Name: Jose Pineda Age: 63 Gender: M : 1960 Exam Date: 07/20/2024 08:33 Exam Location: [facility] Ht (in): 68 Wt (lb): 184 Ordering Physician: Pa Marley MD ([id number]) Attending/Referring Phys: Ophthalmic Technologist Kenzie Mcneal, [id number] Procedure CPT: Indications: exertional CP, abnormal troponins Cardiac Hx: Technical Quality: Fair Contrast 1: Total Dose (mL): Contrast 2: Total Dose (mL): MEASUREMENTS (Male / Female) Normal Values 2D ECHO LV Diastolic Diameter PLAX 4.5 cm 4.2 - 5.9 / 3.9 - 5.3 cm LV Systolic Diameter PLAX 3.9 cm IVS Diastolic Thickness 1.3 cm 0.6 - 1.0 / 0.6 - 0.9 cm LVPW Diastolic Thickness 1.2 cm 0.6 - 1.0 / 0.6 - 0.9 cm LV Relative Wall Thickness 0.6 RV Internal Dim ED PLAX 2.1 cm LA Systolic Diameter LX 5.4 cm 3.0 - 4.0 / 2.7 - 3.8 cm LV Diastolic Volume MOD 4C 56.6 cm??? LV Systolic Volume MOD 4C 40.6 cm??? LV Ejection Fraction MOD 4C 28.2 % LV Cardiac Index MOD 4C 711.7 cm???/min???m??? LV Diastolic Length 4C 6.7 cm LV Systolic Length 4C 6.3 cm M-MODE Aortic Root Diameter MM 3.5 cm LA Systolic Diameter MM 4.1 cm LA Ao Ratio MM 1.2 AV Cusp Separation MM 1.9 cm DOPPLER MV Area PHT 3.2 cm??? Mitral E Point Velocity 86.1 cm/s Mitral A Point Velocity 95.7 cm/s Mitral E to A Ratio 0.9 MV Deceleration Time 237.8 ms TR Peak Velocity 257.4 cm/s TR Peak Gradient 26.5 mmHg FINDINGS Left Ventricle Left ventricular ejection fraction is estimated at 35-40 %. Mildly increased septal wall thickness. Left ventricular cavity size normal. Moderately reduced global left ventricular systolic function. Right Ventricle Normal right ventricular size and function. Right ventricular systolic pressure within normal limits. Right Atrium Mild right atrial dilatation. Left Atrium Severely increased left atrial diameter. Mitral Valve Structurally normal mitral valve. Mild mitral regurgitation. No mitral stenosis. Aortic Valve Trileaflet aortic valve. No aortic valve stenosis or regurgitation. Tricuspid Valve Structurally normal tricuspid valve. Mild tricuspid regurgitation. No tricuspid stenosis. Pulmonic Valve Structurally normal pulmonic valve. Trace pulmonic regurgitation. No pulmonic stenosis. Pericardium No pericardial or pleural effusion. Aorta Normal size aortic root and proximal ascending aorta. CONCLUSIONS Moderate global decrease in contractility. Mild mitral and tricuspid regurgitation. No pulmonary hypertension. No pericardial effusion Previewed by: Dr. Pennie Lindquist MD (Electronically Signed) Final Date: 21 July 2024 07:44
== END 2024-07-20 15:08 | disposition home or self-care (01) | DRG 391 ==
LOC: EC 11:30 → 3SCARD 14:31
PROVIDERS: ADMIT Hospitalist; ATTEND Hospitalist
DX: K52.9 Noninfective gastroenteritis and colitis, unspecified (principal); I21.A1 Myocardial infarction type 2; E87.20 Acidosis, unspecified; E87.4 Mixed disorder of acid-base balance; E87.1 Hypo-osmolality and hyponatremia; N17.9 Acute kidney failure, unspecified; I48.91 Unspecified atrial fibrillation; E88.89 Other specified metabolic disorders; E86.1 Hypovolemia; E87.6 Hypokalemia; I10 Essential (primary) hypertension; N20.0 Calculus of kidney; K57.90 Diverticulosis of intestine, part unspecified, without perforation or abscess without bleeding; E86.0 Dehydration; E78.5 Hyperlipidemia, unspecified; F12.90 Cannabis use, unspecified, uncomplicated
CPT/HCPCS: 36415; 36600; 71045; 74176; 80048; 80053; 80061; 80306; 80320; 81003; 82009; 82150; 82803; 82805; 83036; 83605; 83690; 83735; 84100; 84443; 84484; 85025; 85610; 85730; 87636; 93005; 93306; 96361; 96365; 96366; 96367; 96368; 96375; 99291